=== PATIENT | male | born 1990 | race Caucasian/White ===

== ENCOUNTER 2020-08-14 01:02 | Emergency (ER) | payer BC ==
[~2020-08-14] VITALS: Ht 172.7 cm; Wt 72.7 kg
[2020-08-14] MEDS ORDERED: CEPHALEXIN500 M1 PO (03:19)
[2020-08-14 03:30] VITALS: BP 122/68; PULSE 72; TEMP 98.1
== END 2020-08-14 03:30 | disposition home or self-care (01) ==
LOC: COL.ER 01:02
DX: S61.412A Laceration without foreign body of left hand, initial encounter (principal); Z88.0 Allergy status to penicillin; Z88.2 Allergy status to sulfonamides; W26.8XXA Contact with other sharp object(s), not elsewhere classified, initial encounter; Y92.009 Unspecified place in unspecified non-institutional (private) residence as the place of occurrence of the external cause